=== PATIENT | female | born 1995 | race African-American/Black ===

== ENCOUNTER 2017-02-27 13:25 | Emergency (ER) | payer OTHER ==
--- NOTE | ~2017-02-27 | CR63 ---
[facility] A Service of [facility] & [facility] RADIOLOGY TEXT RESULTS PATIENT: MAYRA ARCE LOCATION: SED : [birth year] UNIT #: [id number] AGE: [address]: DAIN DUMONT PA-C SEX: F ORDER DR: [id number] [address] [address] [id number] E MR#: [id number] Acc #: [id number] NAME: MAYRA ARCE. : 1995 SEX: F STUDY DATE/TIME: 02/27/2017 13:52 UNIT: SED ROOM: STUDY DESCRIPTION: CR Chest 2 View Attending Physician: Dain Dumont Pa-C Ordering Physician: Dain Dumont Pa-C Primary Care Physician: Hayley Christopher MEDICAL IMAGING REPORT This report is preliminary unless electronic signature is present. EXAM 2-view chest 02/27/2017 HISTORY 21-year-old female with cough and congestion beginning yesterday. COMPARISON Chest 11/05/2015 FINDINGS 2 views of the chest demonstrate clear lungs. No pleural effusion or pneumothorax. Heart size and mediastinum are normal. Pulmonary vasculature normal. IMPRESSION No acute cardiopulmonary findings. Dictated by... Ahsan Moon M.D. THIS IS AN ELECTRONICALLY VERIFIED REPORT Ahsan Moon M.D. at 02/28/2017 4:47 PM SHALINI/bethany TD: 02/27/2017 16:47 JOB #: [id number] MEDICAL IMAGING REPORT Page 1 of 1
[~2017-02-27 13:25] MED LIST: ALBUTEROL17 GM; CIPROFLOXACIN500 M1; E-MYCIN250 MG PO; ERYTHROMYCIN250 M1 PO; ESCITALOPRAM OX10 MG PO; IRON325 ( 651 PO; MIRALAX17 GM; NORCO 10-325 TA1 TAB PO; PYRIDIUM PO; TYLENOL #3; VOLTAREN75 MG PO; ZITHROMAX PO; ZOFRAN ODT4 MG PO; ZOLOFT PO
== END 2017-02-27 14:45 | disposition home or self-care (01) ==
LOC: SED 13:25
DX: J45.901 Unspecified asthma with (acute) exacerbation (principal); J06.9 Acute upper respiratory infection, unspecified; F17.210 Nicotine dependence, cigarettes, uncomplicated; Z79.899 Other long term (current) drug therapy; Z88.0 Allergy status to penicillin
CPT/HCPCS: 71020; 94640; 99284

== ENCOUNTER 2017-05-04 02:51 | Emergency (ER) | payer OTHER ==
[2017-05-04] MEDS ORDERED: NO MEDICATIONS (03:01)
[2017-05-04 03:18] LABS: URINE SOURCE CLEAN CATCH
[2017-05-04 03:21] LABS: MICRO INDICATED? NO; URINE APPEARANCE CLEAR; URINE BILIRUBIN NEG (NEG); URINE BLOOD NEG (NEG); URINE COLOR YELLOW; URINE GLUCOSE NEG (NORM); URINE KETONE NEG (NEG); URINE LEUKOCYTE ESTERASE NEG (NEG); URINE NITRATE NEG (NEG); URINE PH 5.5 (5-8); URINE PROTEIN NEG (NEG); URINE SPECIFIC GRAVITY 1.025 (1.003-1.035); URINE UROBILINOGEN 0.2 MG/DL (NORM)
== END 2017-05-04 03:55 | disposition home or self-care (01) ==
LOC: SED 02:51
PROVIDERS: Student in an Organized Health Care Education/Training Program
DX: R10.2 Pelvic and perineal pain (principal); N80.9 Endometriosis, unspecified; F17.200 Nicotine dependence, unspecified, uncomplicated; Z90.721 Acquired absence of ovaries, unilateral; Z88.0 Allergy status to penicillin
CPT/HCPCS: 81003; 84703; 99284

== ENCOUNTER 2017-06-06 09:36 | Emergency (ER) | payer OTHER ==
[~2017-06-06 09:36] MED LIST changes: +NO MEDICATIONS
[2017-06-07] MEDS ORDERED: CLEOCIN (19:01)
== END 2017-06-06 09:58 | disposition home or self-care (01) ==
LOC: SED 09:36
DX: L08.9 Local infection of the skin and subcutaneous tissue, unspecified (principal); L72.9 Follicular cyst of the skin and subcutaneous tissue, unspecified; J45.909 Unspecified asthma, uncomplicated; F17.200 Nicotine dependence, unspecified, uncomplicated; Z88.0 Allergy status to penicillin
CPT/HCPCS: 99283

== ENCOUNTER 2017-06-07 18:40 | Emergency (ER) | payer OTHER ==
[~2017-06-07] VITALS: Ht 165.1 cm; Wt 102.0 kg
[2017-06-07] MEDS ORDERED: CLEOCIN (19:01)
== END 2017-06-07 19:46 | disposition home or self-care (01) ==
LOC: SED 18:40
DX: J86.9 Pyothorax without fistula (principal); J45.909 Unspecified asthma, uncomplicated; F17.200 Nicotine dependence, unspecified, uncomplicated; Z88.0 Allergy status to penicillin
CPT/HCPCS: 10060; 99283

== ENCOUNTER 2017-06-26 10:34 | Emergency (ER) | payer OTHER ==
[~2017-06-26] VITALS: Ht 165.1 cm; Wt 104.3 kg
[~2017-06-26 10:34] MED LIST changes: +CLEOCIN
[2017-06-26 11:05] LABS: INFLUENZA A NEG (NEG); INFLUENZA B NEG (NEG)
== END 2017-06-26 11:47 | disposition home or self-care (01) ==
LOC: SED 10:34
PROVIDERS: Emergency Medicine
DX: B34.9 Viral infection, unspecified (principal); R03.0 Elevated blood-pressure reading, without diagnosis of hypertension; F41.9 Anxiety disorder, unspecified; J45.909 Unspecified asthma, uncomplicated; F17.200 Nicotine dependence, unspecified, uncomplicated; Z88.0 Allergy status to penicillin
CPT/HCPCS: 87651; 87804; 99283